=== PATIENT | female | born 1995 | race Caucasian/White ===

== ENCOUNTER 2021-02-04 07:36 | Emergency (ER) | payer MEDICAID ==
[~2021-02-04] VITALS: Ht 165.1 cm; Wt 145.0 kg
[2021-02-04] MEDS ORDERED: NITROGLYCERIN 0.4MG TABLET SL SL PRN (08:00)
[2021-02-04] MEDS ORDERED: ASPIRIN 81MG TABLET PO ONE (08:00)
[2021-02-04 09:01] LABS: BASOPHILS % 0.5 % (0.0-2.0); EOSINOPHILS % 1.9 % (0.0-5.0); HEMOGLOBIN. 14.9 g/dL (12.0-16.0); LYMPHOCYTES % 37.8 % (20.0-50.0); MEAN CORPUSCULAR HEMOGLOBIN 30.5 pg (28.0-32.0); MEAN CORPUSCULAR VOLUME 90.2 fL (81.0-99.0); MEAN PLATELET VOLUME 9.9 fl (7.4-10.4); MONOCYTES % 8.6 % (2.0-8.0); NEUTROPHILS % 51.2 % (40.0-76.0); PLATELET 257 x1000/uL (130-400); RED BLOOD CELL COUNT 4.88 mill/uL (4.2-5.4); RED CELL DISTRIBUTION WIDTH 13.1 % (11.6-14.6)
[2021-02-04 09:04] LABS: CHLORIDE 102 mEq/L (98-107)
[2021-02-04 09:06] LABS: INR 0.9; PROTHROMBIN TIME 10.1 sec (9.6-11.0)
[2021-02-04 09:07] LABS: HCG SCREEN NEGATIVE
[2021-02-04] MEDS ORDERED: INSULIN REGULAR (HUMULIN R) 300UNITS/3ML VIAL SUBCUT ONE (09:30)
[2021-02-04 12:00] VITALS: BP 137/80
== END 2021-02-04 13:11 | disposition home or self-care (01) ==
LOC: ER 07:49
DX: R07.89 Other chest pain (principal); E11.65 Type 2 diabetes mellitus with hyperglycemia; Z98.84 Bariatric surgery status
CPT/HCPCS: 36415; 71045; 80053; 82962; 83880; 84484; 84703; 85025; 85610; 93005; 96372; 99285; J1815; Z7610

== ENCOUNTER 2022-07-30 19:32 | Emergency (ER) | payer MEDICAID ==
[~2022-07-30] VITALS: Ht 165.1 cm; Wt 143.0 kg
[2022-07-30] MEDS ORDERED: IBUPROFEN 600MG TABLET PO STA (21:53)
[2022-07-30 22:57] LABS: CLARITY URINE CLEAR (CLEAR); COLOR URINE YELLOW (YELLOW); KETONES URINE TRACE (NEGATIVE); LEUKOCYTE ESTERASE URINE 2+ (NEGATIVE); NITRITE URINE NEGATIVE (NEGATIVE); OCCULT BLOOD URINE 2+ (NEGATIVE); PROTEIN URINE 1+ (NEGATIVE); SPECIFIC GRAVITY URINE 1.026 (1.005-1.030); UROBILINOGEN URINE 0.2 E.U./dL (0.2-1.0)
[2022-07-30] MEDS ORDERED: CEPH500T MT (23:15)
[2022-07-30] MEDS ORDERED: IBUP-2029 MT (23:15)
[2022-07-30 23:20] VITALS: BP 160/89
== END 2022-07-30 23:30 | disposition home or self-care (01) ==
LOC: ER 19:32
DX: N10 Acute pyelonephritis (principal); E78.00 Pure hypercholesterolemia, unspecified; E11.9 Type 2 diabetes mellitus without complications; Z98.84 Bariatric surgery status
CPT/HCPCS: 81003; 81025; 99283